=== PATIENT | male | born 1950 | race Caucasian/White ===

== ENCOUNTER 2017-10-27 13:56 | Emergency (ER) | payer MEDICARE, OTHER ==
[~2017-10-27] VITALS: Ht 188 cm; Wt 100.0 kg
[~2017-10-27 13:56] MED LIST: METF500T6 PO; PANT-47 PO
[2017-10-27 14:00] VITALS: BP 133/76
[2017-10-27] MEDS ORDERED: PENI250T2 PO (14:20)
== END 2017-10-27 14:36 | disposition home or self-care (01) ==
LOC: ER 13:57
DX: K04.7 Periapical abscess without sinus (principal); E11.9 Type 2 diabetes mellitus without complications; Z90.49 Acquired absence of other specified parts of digestive tract; Z98.890 Other specified postprocedural states; Z88.0 Allergy status to penicillin; Z79.84 Long term (current) use of oral hypoglycemic drugs; Z79.2 Long term (current) use of antibiotics; Z79.899 Other long term (current) drug therapy
CPT/HCPCS: 99283

== ENCOUNTER 2018-12-29 18:27 | Emergency (ER) | payer MEDICARE ==
[~2018-12-29] VITALS: Ht 188 cm; Wt 115.5 kg
[~2018-12-29 18:27] MED LIST changes: +METF-950 PO; -METF500T6 PO
[2018-12-29 18:29] VITALS: BP 138/77
[2018-12-29] MEDS ORDERED: HYDR-3965 PO (19:23)
[2018-12-29] MEDS ORDERED: IBUP-1984 PO (19:33)
== END 2018-12-29 19:51 | disposition home or self-care (01) ==
LOC: ER 18:28
DX: S92.351A Displaced fracture of fifth metatarsal bone, right foot, initial encounter for closed fracture (principal); E11.9 Type 2 diabetes mellitus without complications; Z90.49 Acquired absence of other specified parts of digestive tract; Z98.890 Other specified postprocedural states; Z79.899 Other long term (current) drug therapy; X50.9XXA Other and unspecified overexertion or strenuous movements or postures, initial encounter; Y93.89 Activity, other specified; Y92.89 Other specified places as the place of occurrence of the external cause; Y99.0 Civilian activity done for income or pay
CPT/HCPCS: 73630; 99283

== ENCOUNTER 2021-01-15 18:34 | Emergency (ER) | payer BC, MEDICARE, OTHER ==
[~2021-01-15] VITALS: Ht 188 cm; Wt 108.2 kg
[~2021-01-15 18:34] MED LIST changes: +METF-1203 PO; -METF-950 PO
[2021-01-15 18:54] VITALS: BP 150/75
[2021-01-15] MEDS ORDERED: AMOX-117 PO (19:14)
[2021-01-15] MEDS ORDERED: IBUP-1984 PO (19:14)
== END 2021-01-15 19:26 | disposition home or self-care (01) ==
LOC: ER 18:34
DX: K04.7 Periapical abscess without sinus (principal); E11.9 Type 2 diabetes mellitus without complications; Z87.442 Personal history of urinary calculi
CPT/HCPCS: 99283

== ENCOUNTER 2021-08-31 09:50 | Emergency (ER) | payer BC ==
[~2021-08-31] VITALS: Ht 188 cm; Wt 113.0 kg
[2021-08-31 11:16] VITALS: BP 127/69
[2021-08-31] MEDS ORDERED: normal saline 1000ML IV soln IVB ONE (12:30)
== END 2021-08-31 14:03 | disposition home or self-care (01) ==
LOC: ER 09:50
DX: E86.0 Dehydration (principal); R55 Syncope and collapse; Z87.442 Personal history of urinary calculi; Z79.899 Other long term (current) drug therapy
CPT/HCPCS: 96360; 96361; 99283; J7030

== ENCOUNTER 2021-09-22 11:29 | Emergency (ER) | payer BC ==
[~2021-09-22] VITALS: Ht 188 cm; Wt 111.4 kg
[2021-09-22 11:41] VITALS: BP 149/69
[2021-09-22] MEDS ORDERED: mupirocin 2% ointment 22GM TP STA (12:11)
[2021-09-22] MEDS ORDERED: TETanus/Pertussis (Acell)/Diphther VAC/PF (Tdap-Adult) 0.5ml syringe IMVAC ONE (12:15)
[2021-09-22] MEDS ORDERED: MUPI22OI30 TOP (13:01)
[2021-09-22] MEDS ORDERED: HYDR-3965 PO (13:01)
== END 2021-09-22 14:16 | disposition home or self-care (01) ==
LOC: ER 11:29
DX: T23.102A Burn of first degree of left hand, unspecified site, initial encounter (principal); Z87.442 Personal history of urinary calculi; Z79.899 Other long term (current) drug therapy; Z79.84 Long term (current) use of oral hypoglycemic drugs; W19.XXXA Unspecified fall, initial encounter; Y93.89 Activity, other specified; Y92.89 Other specified places as the place of occurrence of the external cause; Y99.8 Other external cause status
CPT/HCPCS: 16020; 90471; 90715; 99284; A6222; 16000; A6258; A6449

== ENCOUNTER → 2023-02-23 | Emergency (ER) | payer BC ==
[~2023-02-23] VITALS: Ht 185.4 cm; Wt 109.1 kg
[~2023-02-23] MED LIST changes: +CYCL-1 PO; +PRED20TA PO
[2023-02-23 16:46] VITALS: BP 139/70; PULSE 61; RESP 17; TEMP 98; O2SAT 97
== END | disposition home or self-care (01) ==
LOC: ER 15:26
DX: M54.16 Radiculopathy, lumbar region (principal)
CPT/HCPCS: 99283

== ENCOUNTER 2023-10-17 17:20 | Emergency (ER) | payer BC ==
[~2023-10-17] VITALS: Ht 185.4 cm; Wt 103.5 kg
[~2023-10-17 17:20] MED LIST changes: +ATOR20TA66 PO; -PRED20TA PO
[2023-10-17 18:29] VITALS: BP 122/68; PULSE 78; RESP 16; TEMP 97.7; O2SAT 99
== END 2023-10-17 18:56 | disposition home or self-care (01) ==
LOC: ER 17:21
DX: R59.0 Localized enlarged lymph nodes (principal); F11.90 Opioid use, unspecified, uncomplicated; Z79.899 Other long term (current) drug therapy; Z79.84 Long term (current) use of oral hypoglycemic drugs; Z87.442 Personal history of urinary calculi; Z90.49 Acquired absence of other specified parts of digestive tract; Z98.890 Other specified postprocedural states
CPT/HCPCS: 99281